=== PATIENT | male | born 1975 | race African-American/Black ===

== ENCOUNTER 2023-05-10 13:42 | Emergency (ER) | payer OTHER ==
[2023-05-10 14:14] LABS: Hematocrit 46.3 % (42.0-52.0); Hemoglobin 13.7 g/dL (14.0-18.0); Mean Corpuscular HGB CONC 29.6 g/dL (32.0-36.0); Red Blood Cell (RBC) Count 4.28 mill/uL (4.70-6.10); White Blood Cell (WBC) Count 6.1 10x3/uL (4.8-10.8)
[2023-05-10 14:15] LABS: #Basophils 0.1 thou/uL (0.0-0.2); #Monocytes 0.5 thou/uL (0.11-0.59); #Neutrophils 3.5 thou/uL (1.40-6.50); %Basophils 0.9 % (0.0-1.0); %Eosinophils 0.5 % (0.0-10.0); %Lymphocytes 32.6 % (21.0-51.0); %Monocytes 8.1 % (0.0-10.0); %Neutrophils 57.6 % (42.0-75.0); Manual Diff?? NO; Mean Platelet Volume 6.6 fL (7.4-10.4); Platelet Count 187 10x3/uL (130-400)
[2023-05-10 14:34] LABS: Troponin I 0.078 ng/mL (< 0.028)
[2023-05-10 14:51] LABS: ALT (SGPT) 20 U/L (8-55); AST (SGOT) 19 U/L (5-34); Albumin 3.5 g/dL (3.5-5.0); Alkaline Phosphatase 101 U/L (40-110); Anion Gap 17 mmol/L (10-20); BUN (Urea Nitrogen) 38 mg/dL (8.9-20.6); Bilirubin, Total 0.8 mg/dL (0.2-1.2); Calc. Creatinine Clearance 0 mL/min (70-130); Calcium 8.2 mg/dL (7.8-10.44); Carbon Dioxide 27 mmol/L (22-29); Chloride 96 mmol/L (98-107); Estimated GFR 26; Globulin 3.7 g/dL (2.4-3.5); Glucose 120 mg/dL (70-105); Lipase 83 U/L (8-78); Potassium 4.3 mmol/L (3.5-5.1); Protein, Total 7.2 g/dL (6.0-8.3); Sodium 136 mmol/L (136-145)
[2023-05-10] MEDS ORDERED: Furosemide 20 MG/2 ML VIAL ONE (15:17)
[2023-05-10] MEDS ORDERED: Enoxaparin 120 MG/0.8 ML SYRINGE SC ONE (16:42)
[2023-05-10] MEDS ORDERED: Acetaminophen 500 MG TAB ONE (17:36)
[2023-05-10 17:51] LABS: Troponin I 0.122 ng/mL (< 0.028)
[2023-05-10 20:32] LABS: Troponin I 0.212 ng/mL (< 0.028)
== END 2023-05-10 23:41 | disposition home or self-care (01) ==
LOC: NAV ERS 13:42 → EEVIPCON 13:42 → NAV ERS 23:41
DX: I50.9 Heart failure, unspecified (principal); R79.1 Abnormal coagulation profile; E11.40 Type 2 diabetes mellitus with diabetic neuropathy, unspecified; E03.9 Hypothyroidism, unspecified; G47.30 Sleep apnea, unspecified; E66.01 Morbid (severe) obesity due to excess calories; Z79.82 Long term (current) use of aspirin; Z79.899 Other long term (current) drug therapy
CPT/HCPCS: 71045; 80053; 83690; 83880; 84484; 85025; 85379; 93005; 94760; 96372; 96374; J1650; J1940